=== PATIENT | female | born 1965 | race African-American/Black ===

== ENCOUNTER 2018-12-21 20:19 | Emergency (ER) | payer BC, OTHER ==
[2018-12-21 20:33] VITALS: BP 124/73
--- NOTE | 2018-12-21 20:44 | UC ---
Complaint Female HPI - HPI Summary HPI Summary: 53 yo perimenopausal woman, with onset this afternoon of dysuria, urgency, and gross hematuria. She has infrequent UTI's, but intensity is generally high. Likely trigger for the infection was sexual activity despite good practices around prevention. - History Of Current Complaint Chief Complaint: UCGU Stated Complaint: URINARY COMPLAINT Time Seen by Provider: 12/21/18 20:33 Hx Obtained From: Patient Hx Last Menstrual Period: 12/08/2018 Onset/Duration: Sudden Onset, Lasting Hours Timing: Intermittent Severity Initially: Moderate Severity Currently: Moderate Pain Intensity: 6 Character: Burning, Cramping Aggravating Factor(s): Urination Alleviating Factor(s): Nothing Associated Signs And Symptoms: Positive: Negative Related Hx: Similar Episode/Dx as: - UTI - Allergies/Home Medications Allergies/Adverse Reactions: Allergies Allergy/AdvReac Type Severity Reaction Status Date / Time No Known Allergies Allergy Verified 12/21/18 20:33 Home Medications: Home Medications Cranberry Fruit Extract/Vit C [Azo Cranberry Softgel] 12/21/18 [History] PMH/Surg Hx/FS Hx/Imm Hx Previously Healthy: Yes - Surgical History Surgical History: None - Family History Known Family History: Positive: Non-Contributory - Social History Occupation: Employed Full-time Alcohol Use: None Substance Use Type: None Smoking Status (MU): Never Smoked Tobacco Review of Systems All Other Systems Reviewed And Are Negative: Yes Constitutional: Positive: Negative Genitourinary: Positive: Other - regular cycles, but some change in bladder control over past several years. Motor: Positive: Negative Neurovascular: Positive: Negative Musculoskeletal: Positive: Negative Is Patient Immunocompromised?: No Physical Exam Triage Information Reviewed: Yes Appearance: Well-Appearing, No Pain Distress Vital Signs: Initial Vital Signs Temp 97.7 F 12/21/18 20:28 Pulse 76 12/21/18 20:28 Resp 16 12/21/18 20:28 BP 124/73 12/21/18 20:28 Pulse Ox 100 12/21/18 20:28 ENT: Positive: Normal ENT inspection Respiratory: Positive: Lungs clear, Normal breath sounds, No respiratory distress Cardiovascular: Positive: RRR, No Murmur Abdomen Description: Negative: CVA Tenderness (R), CVA Tenderness (L) Diagnostics - Laboratory Lab Results: UA with 3+ blood, leuks and esterace positive. Complaint Female Dx - Course Course Of Treatment: bactrim for treatment of UTI fluconazole in case of development of yeast vaginitis. - Differential Dx/Diagnosis Differential Diagnosis/HQI/PQRI: Urinary Tract Infection Provider Diagnosis: UTI (urinary tract infection) Discharge ED - Sign-Out/Discharge Documenting (check all that apply): Patient Departure All imaging exams completed and their final reports reviewed: No Studies - Discharge Plan Condition: Good Disposition: HOME Prescriptions: Fluconazole 150 MG (NF) [Diflucan 150 mg (NF)] 150 mg PO ONCE #1 tab Phenazopyridine TAB* [Pyridium 100 mg TAB*] 100 mg PO TID PRN #6 tab PRN Reason: Spasms - Bladder Sulfamethox/Trimethoprim DS* [Bactrim DS 800/160 TAB*] 1 tab PO BID #8 tab Patient Education Materials: Urinary Tract Infection in Women (ED) Referrals: Kayleen Stark MD [Primary Care Provider] - Additional Instructions: Your urine will be cultured and you will be notified if a change of antibiotics is needed. Ensure high intake of fluids while using bactrim. Pyridium has been prescribed to relieve the bladder spasm and you have fluconazole in reserve should you develop a yeast vaginitis. - Billing Disposition and Condition Condition: GOOD Disposition: Home
[2018-12-21] MEDS ORDERED: Sulfamethox/Trimethoprim DS 800/160* TAB PO ONE ×2 (20:45)
[2018-12-21] MEDS ORDERED: Phenazopyridine TAB* 100 MG PO ONE (20:47)
== END 2018-12-21 21:00 | disposition home or self-care (01) ==
LOC: UCEAST 20:19
DX: N39.0 Urinary tract infection, site not specified (principal)
CPT/HCPCS: 81003; 87077; 87086; 87186; 99213; A9270-GY; G0463